=== PATIENT | male | born 1980 | race Caucasian/White ===

== ENCOUNTER 2016-12-24 11:51 | Emergency (ER) | payer BC, OTHER ==
[2016-12-24 12:27] LABS: CHLORIDE,CL 104 mmol/L (101-111); SODIUM,NA 137 mmol/L (135-145)
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
--- NOTE | 2016-12-25 11:29 | EKG ---
12/24/2016 - ISADORA ARTEAGA - TIME: 12:16 p.m. EKG shows sinus bradycardia. The heart rate is 56 per minute. [facility] /[id number]
== END 2016-12-24 15:04 | disposition home or self-care (01) ==
LOC: DL.ED 11:51
DX: R55 Syncope and collapse (principal)
CPT/HCPCS: 36415; 70450; 80053; 80305; 81001; 84484; 85025; 93005; 99284

== ENCOUNTER 2017-05-18 12:30 | Emergency (ER) | payer OTHER, BC ==
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
[2017-05-18] MEDS ORDERED: Acetaminophen/HYDROcodone 325-10 MG Tab PO ONE (13:33)
[2017-05-18] MEDS ORDERED: Ketorolac 30 MG/ML SDV IM ONE (13:33)
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
== END 2017-05-18 14:57 | disposition home or self-care (01) ==
LOC: DL.ED 12:30
DX: S39.012A Strain of muscle, fascia and tendon of lower back, initial encounter (principal); S76.312A Strain of muscle, fascia and tendon of the posterior muscle group at thigh level, left thigh, initial encounter; F17.210 Nicotine dependence, cigarettes, uncomplicated; W00.9XXA Unspecified fall due to ice and snow, initial encounter
CPT/HCPCS: 72131; 96372; 99284; A9270; J1885

== ENCOUNTER 2017-11-02 09:02 | Emergency (ER) | payer OTHER, BC ==
[2017-11-02] MEDS ORDERED: Diphtheria,Pertussis(Acell),Tetanus Vaccine 0.5 ML SDV IM ONE (09:31)
[2017-11-02] MEDS ORDERED: Bacitracin Oint 1 GM U/D Packet TOP ONE (10:06)
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
--- NOTE | 2017-11-02 11:55 | CR ---
CLINICAL HISTORY: 37-year-old male with concern "foreign body" middle (third) finger. INTERPRETATION: Soft tissue swelling distal end of the middle or third finger left hand. Chronic arth ritic changes underlying DIP joint. No sign of foreign body, inflammatory periostitis, osteomyelitis, left middle finger fracture or disl ocation.
== END 2017-11-02 10:12 | disposition home or self-care (01) ==
LOC: DL.ED 09:02
DX: S61.213A Laceration without foreign body of left middle finger without damage to nail, initial encounter (principal); M79.605 Pain in left leg; W27.8XXA Contact with other nonpowered hand tool, initial encounter; Z23 Encounter for immunization
CPT/HCPCS: 73140-F2; 90471; 90715; 99283

== ENCOUNTER 2021-01-31 15:30 | Emergency (ER) | payer BC | END 2021-01-31 15:55 | disposition left against medical advice (07) | LOC: DL.ED 15:30 | DX: Z53.21 Procedure and treatment not carried out due to patient leaving prior to being seen by health care provider (principal) ==